=== PATIENT | female | born 1940 | race Caucasian/White ===

== ENCOUNTER 2019-03-03 16:05 | Observation (INO) | payer MEDICARE, OTHER ==
[2019-03-03] MEDS ORDERED: ASPIRIN 81 MG TABLET, CHEWABLE PO ONE (16:45)
--- NOTE | 2019-03-03 17:07 | ER Document Report ---
ED Medical Screen (RME) - General Chief Complaint: Chest Pain Stated Complaint: CHEST PAIN Time Seen by Provider: 03/03/19 16:36 Primary Care Provider: LAILA HIDALGO MD [Primary Care Provider] - Follow up as needed Mode of Arrival: Ambulatory Information source: Patient Notes: Patient is a 79-year-old female presenting to the emergency department with midsternal chest pain. Patient reports pain started approximately 2 hours prior to arrival. She denies any nausea, shortness of breath or diaphoresis. She denies any radiation of this pain. She reports the pain is a 4/5 on the pain scale. She denies any history of MIs in the past. Exam: Lung sounds clear and equal bilaterally, no acute distress noted. Heart sounds S1-S2 present with no ectopy noted, normal rate, normal rhythm. No tenderness with palpation of the chest wall. I have greeted and performed a rapid initial assessment of this patient. A comprehensive ED assessment and evaluation of the patient, analysis of test results and completion of the medical decision making process will be conducted by additional ED providers. I have specifically instructed the patient or family members with the patient to immediately return to any nursing staff should anything change in the patient's condition or with their chief complaint. This medical record was dictated with voice recognizing software. There may be grammatical, syntax errors that are unintended.\ TRAVEL OUTSIDE OF THE [place] IN LAST 30 DAYS: No - Related Data Allergies/Adverse Reactions: No Known Allergies Allergy (Verified 03/03/19 17:01) Past Medical History - Past Medical History Cardiac Medical History: Reports: Hx Hypercholesterolemia, Hx Hypertension Physical Exam - Vital signs Vitals: Temp Pulse Resp BP Pulse Ox 98.4 F 63 20 157/72 H 98 03/03/19 16:19 03/03/19 16:19 03/03/19 16:19 03/03/19 16:19 03/03/19 16:19 Course - Vital Signs Vital signs: Temp Pulse Resp BP Pulse Ox 98.4 F 63 20 157/72 H 98 03/03/19 16:19 03/03/19 16:19 03/03/19 16:19 03/03/19 16:19 03/03/19 16:19 Doctor's Discharge - Discharge Referrals: LAILA HIDAGLO MD [Primary Care Provider] - Follow up as needed
[2019-03-03 17:41] LABS: ALBUMIN 4.1 g/dL (3.5-5.0); ALKALINE PHOSPHATASE 50 U/L (38-126); ANION GAP 7 (5-19); ASPARTATE AMINO TRANSFERASE 27 U/L (14-36); BILIRUBIN,TOTAL 0.3 mg/dL (0.2-1.3); BLOOD UREA NITROGEN 13 mg/dL (7-20); CALCIUM 10.1 mg/dL (8.4-10.2); CARBON DIOXIDE 29 mmol/L (22-30); CHLORIDE 96 mmol/L (98-107); GLUCOSE 102 mg/dL (75-110); POTASSIUM 4.2 mmol/L (3.6-5.0); TOTAL PROTEIN 6.7 g/dL (6.3-8.2)
--- NOTE | 2019-03-03 17:44 | RADIOLOGY REPORT (SQ) ---
EXAM DESCRIPTION: CHEST 2 VIEWS COMPLETED DATE/TIME: 03/03/2019 5:17 pm REASON FOR STUDY: chest pain COMPARISON: None. TECHNIQUE: Single frontal radiographic view of the chest acquired. NUMBER OF VIEWS: One view. LIMITATIONS: None. FINDINGS: LUNGS AND PLEURA: No pneumothorax. No consolidation or pleural effusion. MEDIASTINUM AND HILAR STRUCTURES: Age-appropriate contour. HEART AND VASCULAR STRUCTURES: Normal size. BONES: Moderate Compression deformity of a lower thoracic spine vertebral body, age undetermined. HARDWARE: None in the chest. OTHER: No other significant finding. IMPRESSION: Moderate Compression deformity of a lower thoracic spine vertebral body, age undetermine d. No acute cardiopulmonary finding. TECHNICAL DOCUMENTATION: JOB ID: [id number] [employer]- All Rights Reserved Reading location - IP/workstation name: [email or web address]
[2019-03-03] MEDS ORDERED: NORMAL SALINE 1000 ML 1,000 ML IV ONE (17:55)
--- NOTE | 2019-03-03 17:55 | ER Document Report ---
ED Cardiac - General Chief Complaint: Chest Pain Stated Complaint: CHEST PAIN Time Seen by Provider: 03/03/19 16:36 Primary Care Provider: LAILA HIDALGO MD [Primary Care Provider] - Follow up as needed Mode of Arrival: Ambulatory Notes: Patient states that about 2:30 this afternoon, while just sitting, she began to experience "pressure" in the lower mid substernal region of her chest. The symptoms are still going on now. She has never had them before. Did not have any associated symptoms such as shortness of breath, etc. Has not been sick recently. No nausea or vomiting. No fevers. Patient had a stroke 20 years ago. She has poor memory function. History of hypertension and high cholesterol. Takes a baby aspirin daily. TRAVEL OUTSIDE OF THE [place] IN LAST 30 DAYS: No - Related Data Allergies/Adverse Reactions: No Known Allergies Allergy (Verified 03/03/19 17:01) Past Medical History - General Information source: Patient - Social History Smoking Status: Never Smoker Family History: Reviewed & Not Pertinent Patient has suicidal ideation: No Patient has homicidal ideation: No - Past Medical History Cardiac Medical History: Reports: Hx Hypercholesterolemia, Hx Hypertension Neurological Medical History: Reports: Hx Cerebrovascular Accident - 2 years ago ., Other - Memory loss. Endocrine Medical History: Denies: Hx Diabetes Mellitus Type 1, Hx Diabetes Mellitus Type 2 Surgical Hx: Negative Review of Systems - Review of Systems Notes: REVIEW OF SYSTEMS: CONSTITUTIONAL : Denies fever. EENT: Denies eye, ear, nose or mouth or throat pain or other symptoms. CARDIOVASCULAR: See HPI. RESPIRATORY: Denies cough, chest congestion, or shortness of breath. GASTROINTESTINAL: Denies abdominal pain or nausea, vomiting, or diarrhea. GENITOURINARY: Denies difficulty or painful urinating, urinary frequency, blood in urine. MUSCULOSKELETAL: Denies back or neck pain. Denies joint pain or swelling. SKIN: Denies rash or skin lesions. NEUROLOGICAL: Denies LOC or altered mental status. Denies headache. Denies sensory loss or motor deficits. ALL OTHER SYSTEMS REVIEWED AND NEGATIVE. Physical Exam - Vital signs Vitals: Temp Pulse Resp BP Pulse Ox 98.4 F 63 20 157/72 H 98 03/03/19 16:19 03/03/19 16:19 03/03/19 16:19 03/03/19 16:19 03/03/19 16:19 Interpretation: Hypertensive - Mild. No: Hypoxic Notes: PHYSICAL EXAMINATION: GENERAL: Well-appearing, in no acute distress. Mildly hypertensive. HEAD: Atraumatic, normocephalic. EYES: Pupils equal round and reactive to light, extraocular movements intact. ENT: oropharynx clear without exudates. Moist mucous membranes. NECK: Normal range of motion, supple. LUNGS: Breath sounds clear and equal bilaterally. HEART: Regular rate and rhythm without murmurs. ABDOMEN: Soft, nontender. No guarding or rebound. No masses. BACK: No tenderness throughout entire back. EXTREMITIES: Normal range of motion without pain. NEUROLOGICAL: Normal speech, normal gait. Normal sensory, motor, and reflex exams. Awake, alert, and oriented x3. Cranial nerves normal. Says she has significant memory loss. PSYCH: Normal mood, normal affect. SKIN: Warm, dry, no rashes. Course - Re-evaluation Re-evalutation: 03/03/19 18:[address] Hidalgo, patient's primary care provider, and he requested that I talk with the geography faculty member, Dr. Mayes. I called Dr. Mayes and he recommended that the patient be put in and ruled out. Patient will be admitted to [facility] to Dr. Hidalgo. 03/03/19 18:46 never came to the emergency department and saw the patient before she was admitted. - Vital Signs Vital signs: Temp Pulse Resp BP Pulse Ox 98.4 F 63 17 172/82 H 100 03/03/19 16:19 03/03/19 16:19 03/03/19 18:01 03/03/19 18:01 03/03/19 18:01 - Laboratory Result Diagrams: 03/03/19 16:50 03/03/19 16:50 Laboratory results interpreted by me: 03/03/19 03/03/19 16:50 16:50 Eos % (Auto) 7.8 H Absolute Eos (auto) 0.7 H Sodium 132.3 L Chloride 96 L Est GFR (MDRD) Non-Af 58 L - Diagnostic Test Radiology results interpreted by me: 03/03/19 18:00 Chest x-ray shows mild cardiomegaly, but otherwise normal. - EKG Interpretation by [facility] EKG shows normal: Sinus rhythm Rate: Normal Rhythm: NSR [place]/QRS: LBBB Voltage: Consistant with [facility] Discharge - Discharge Clinical Impression: Chest pain Condition: Stable Disposition: ADMITTED OBSERVATION Admitting Provider: Ruddy Unit Admitted: [facility] Referrals: LAILA HIDALGO MD [Primary Care Provider] - Follow up as needed
[2019-03-03] MEDS ORDERED: NITROGLYCERIN 2.5 MG (0.1 MG/HR) PATCH.TD24 TD ONE (17:56)
[2019-03-03 17:57] LABS: ABSOLUTE BASOPHILS # (AUTO) 0.1 10^3/uL (0.0-0.2); ABSOLUTE EOSINOPHILS # (AUTO) 0.7 10^3/uL (0.0-0.6); ABSOLUTE LYMPHOCYTES (AUTO) 2.5 10^3/uL (0.5-4.7); ABSOLUTE MONOCYTES (AUTO) 0.5 10^3/uL (0.1-1.4); ABSOLUTE NEUT (AUTO) 4.8 10^3/uL (1.7-8.2); BASOPHILS % (AUTO) 0.8 % (0-2); EOSINOPHILS % (AUTO) 7.8 % (0-6); HEMATOCRIT 37.6 % (36.0-47.0); HEMOGLOBIN 12.9 g/dL (12.0-15.5); LYMPHOCYTES % (AUTO) 29.5 % (13-45); MEAN CORPUSCULAR HEMOGLOBIN 30.8 pg (27.0-33.4); MEAN CORPUSCULAR HGB CONC 34.3 g/dL (32.0-36.0); MEAN CORPUSCULAR VOLUME 90 fl (80-97); MONOCYTES % (AUTO) 5.5 % (3-13); PLATELET COUNT 231 10^3/uL (150-450); RED BLOOD COUNT 4.18 10^6/uL (3.72-5.28); RED CELL DISTRIBUTION WIDTH 13.1 % (11.5-14.0); SEGMENTED NEUTROPHILS % (AUTO) 56.4 % (42-78); TOTAL CELLS COUNTED % (AUTO) 100 %; WHITE BLOOD COUNT 8.4 10^3/uL (4.0-10.5)
[2019-03-03] MEDS ORDERED: ACETAMINOPHEN 325 MG TABLET PO ONE ×2 (17:58→23:24)
--- NOTE | 2019-03-03 18:09 | EKG REPORT ---
SEVERITY:- ABNORMAL ECG - SINUS RHYTHM LEFT BUNDLE BRANCH BLOCK : Confirmed by: Tonio Pollard MD 03-Mar-2019 18:08:55
[2019-03-03] MEDS ORDERED: ACETAMINOPHEN 650 MG SUPP.RECT PR PRN (18:56)
[2019-03-03 19:55] LABS: TROPONIN I < 0.012 ng/mL
--- NOTE | 2019-03-03 20:06 | Progress Note ---
Provider Note Provider Note: pt seen and exam in er and d/w and d/w dr james
[2019-03-03] MEDS: FAMOTIDINE 20 MG TABLET PO SCH (21:40)
[2019-03-04 01:22] LABS: CREATINE KINASE MB 0.79 ng/mL (<4.55)
[2019-03-04 01:28] LABS: TROPONIN I < 0.012 ng/mL
[2019-03-04] MEDS ORDERED: ACETAMINOPHEN 325 MG TABLET ONE (02:04)
--- NOTE | 2019-03-04 07:34 | EKG REPORT ---
SEVERITY:- ABNORMAL ECG - SINUS RHYTHM LEFT BUNDLE BRANCH BLOCK : Confirmed by: Tonio Pollard MD 04-Mar-2019 07:34:04
--- NOTE | 2019-03-04 08:24 | RADIOLOGY REPORT (SQ) ---
EXAM DESCRIPTION: CERV SP 3 VIEW OR LESS COMPLETED DATE/TIME: 03/03/2019 7:27 pm REASON FOR STUDY: back pain COMPARISON: None. NUMBER OF VIEWS: Three views. TECHNIQUE: AP, lateral and odontoid radiographic images acquired of the cervical spine. LIMITATIONS: None. FINDINGS: MINERALIZATION: Normal. ALIGNMENT: Anatomic. VERTEBRAE: Vertebral bodies of normal height. DISCS: No significant disc space narrowing. No large osteophytes. HARDWARE: None in the spine. SOFT TISSUES: No masses or calcifications. Lung apices clear. OTHER: No other significant finding. IMPRESSION: NO SIGNIFICANT RADIOGRAPHIC FINDING IN THE CERVICAL SPINE. TECHNICAL DOCUMENTATION: JOB ID: [id number] [employer]- All Rights Reserved Reading location - IP/workstation name: [email or web address]
--- NOTE | 2019-03-04 08:27 | RADIOLOGY REPORT (SQ) ---
EXAM DESCRIPTION: T SPINE AP/LAT COMPLETED DATE/TIME: 03/03/2019 7:27 pm REASON FOR STUDY: lilain pain COMPARISON: None. NUMBER OF VIEWS: Two views. TECHNIQUE: AP and lateral radiographic images acquired of the thoracic spine. LIMITATIONS: None. FINDINGS: MINERALIZATION: Osteopenia. ALIGNMENT: Normal. No scoliosis. VERTEBRAE: There is approximately 40% loss of height at T12. Recommend MRI for further evaluation. The patient may be a candidate for kyphoplasty. DISCS: No significant loss of height or significant narrowing. No large osteophytes. HARDWARE: None in the spine. MEDIASTINUM AND SOFT TISSUES: Normal heart size and aortic contour. No soft tissue abnormality. VISUALIZED LUNG WHITNEY: Clear. OTHER: No other significant finding. IMPRESSION: T12 compression deformity with approximately 40% loss of height. Recommend MRI for furt her evaluation. The patient may be a candidate for kyphoplasty. TECHNICAL DOCUMENTATION: JOB ID: [id number] [employer]- All Rights Reserved Reading location - IP/workstation name: [email or web address]
[2019-03-04 08:35] LABS: BLOOD UREA NITROGEN 11 mg/dL (7-20); CALCIUM 9.5 mg/dL (8.4-10.2); GLUCOSE 90 mg/dL (75-110); POTASSIUM 4.4 mmol/L (3.6-5.0)
[2019-03-04 08:41] LABS: ANION GAP 5 (5-19); CARBON DIOXIDE 27 mmol/L (22-30); CHLORIDE 104 mmol/L (98-107)
[2019-03-04 08:46] LABS: CREATINE KINASE MB 0.63 ng/mL (<4.55)
[2019-03-04 08:53] LABS: TROPONIN I < 0.012 ng/mL
--- NOTE | 2019-03-04 09:35 | PDOC H&P ---
History of Present Illness Admission Date/PCP: 03/03/19 19:16 LAILA HIDALGO MD Patient complains of: Chest pain History of Present Illness: ISABELA HDEZ is a 79 year old female This is a 79-year-old female fairly new patient to the practice with a history of the major depression's and a history of osteoporosis and recently struggling from the memory problem came to the emergency department with the complaining of her chest pain especially describing her midsternal in the left side started 4 hours back before come to the ER without any activity In the ER patient initial EKG cardiac enzyme is all negative patient's d-dimer is also negative Patient's never had any previous heart disease At this point patient was giving the nitro which mild help but still have a chest pain which more likely a chest wall type of the pain and initial work-up when I saw the patient noticed that patient has some kind of a compression fracture and decided to order the x-ray of the C-spine and T-spine to further evaluate may be they can radiate this pain With the age and other medical issues decided to cardiology consult for further evaluate Discussed with the hospital on the bedside regarding the patient's current conditions Discussed with the cardiology Dr. Mayes Past Medical History Cardiac Medical History: Reports: Hyperlipidema, Hypertension Neurological Medical History: Reports: Other - Memory loss. Endocrine Medical History: Denies: Diabetes Mellitus Type 1, Diabetes Mellitus Type 2 Musculoskeltal Medical History: Reports: Arthritis Psychiatric Medical History: Reports: Depression Social History Information Source: Patient Smoking Status: Never Smoker Frequency of Alcohol Use: None Hx Recreational Drug Use: No Drugs: None Hx Prescription Drug Abuse: No Family History Family History: Reviewed & Not Pertinent Parental Family History Reviewed: Yes Children Family History Reviewed: Yes Sibling(s) Family History Reviewed.: Yes Medication/Allergy Home Medications: Alendronate Sodium 70 mg PO Q7D 03/03/19 Atorvastatin Calcium [Lipitor 10 mg Tablet] 10 mg PO QHS 03/03/19 Citalopram Hydrobromide [Celexa 20 mg Tablet] 30 mg PO DAILY 03/03/19 Levocetirizine Dihydrochloride [Allergy Relief] 5 mg PO DAILY 03/03/19 Losartan Potassium [Cozaar 50 mg Tablet] 50 mg PO DAILY 03/03/19 Allergies/Adverse Reactions: No Known Allergies Allergy (Verified 03/03/19 17:01) Review of Systems Constitutional: ABSENT: chills, fever(s), headache(s), weight gain, weight loss Eyes: ABSENT: visual disturbances Ears: ABSENT: hearing changes Cardiovascular: PRESENT: chest pain. ABSENT: dyspnea on exertion, edema, orthropnea, palpitations Respiratory: ABSENT: cough, hemoptysis Gastrointestinal: ABSENT: abdominal pain, constipation, diarrhea, hematemesis, hematochezia, nausea, vomiting Genitourinary: ABSENT: dysuria, hematuria Musculoskeletal: ABSENT: joint swelling Integumentary: ABSENT: rash, wounds Neurological: ABSENT: abnormal gait, abnormal speech, confusion, dizziness, focal weakness, syncope Psychiatric: ABSENT: anxiety, depression, homidical ideation, suicidal ideation Endocrine: ABSENT: cold intolerance, heat intolerance, menstrual abnormalities, polydipsia, polyuria Hematologic/Lymphatic: ABSENT: easy bleeding, easy bruising, lymphadenopathy Physical Exam Vital Signs: Temp Pulse Resp BP Pulse Ox 97.7 F 58 L 18 157/70 H 98 03/04/19 08:17 03/04/19 08:17 03/04/19 08:17 03/04/19 08:17 03/04/19 08:17 Intake & Output 03/03/19 03/04/19 03/05/19 06:59 06:59 06:59 Intake Total 1100 Balance 1100 Weight 59.7 kg General appearance: PRESENT: no acute distress, well-developed, well-nourished Head exam: PRESENT: atraumatic, normocephalic Eye exam: PRESENT: conjunctiva pink, EOMI, PERRLA. ABSENT: scleral icterus Ear exam: PRESENT: normal external ear exam Mouth exam: PRESENT: moist, tongue midline Neck exam: PRESENT: full ROM. ABSENT: carotid bruit, JVD, lymphadenopathy, thyromegaly Respiratory exam: PRESENT: chest wall tenderness, clear to auscultation rishi Cardiovascular exam: PRESENT: RRR. ABSENT: diastolic murmur, rubs, systolic murmur Pulses: PRESENT: normal dorsalis pedis pul, +2 pedal pulses bilateral Vascular exam: PRESENT: normal capillary refill GI/Abdominal exam: PRESENT: normal bowel sounds, soft. ABSENT: distended, guarding, mass, organolmegaly, rebound, tenderness Rectal exam: PRESENT: deferred Musculoskeletal exam: PRESENT: ambulatory Neurological exam: PRESENT: alert, awake, oriented to person, oriented to place, oriented to time, oriented to situation, CN II-XII grossly intact. ABSENT: motor sensory deficit Psychiatric exam: PRESENT: appropriate affect, normal mood. ABSENT: homicidal ideation, suicidal ideation Skin exam: PRESENT: dry, intact, warm. ABSENT: cyanosis, rash Results Laboratory Results: 03/03/19 16:50 03/04/19 07:53 03/03/19 03/03/19 03/04/19 16:50 16:50 07:53 WBC 8.4 RBC 4.18 Hgb 12.9 Hct 37.6 MCV 90 MCH 30.8 MCHC 34.3 RDW 13.1 Plt Count 231 Seg Neutrophils % 56.4 Sodium 132.3 L 136.0 L Potassium 4.2 4.4 Chloride 96 L 104 Carbon Dioxide 29 27 Anion Gap 7 5 BUN 13 11 Creatinine 0.94 0.85 Est GFR ( Amer) > 60 > 60 Glucose 102 90 Calcium 10.1 9.5 Total Bilirubin 0.3 AST 27 Alkaline Phosphatase 50 Total Protein 6.7 Albumin 4.1 03/03/19 03/03/19 03/03/19 16:50 18:54 18:54 Creatine Kinase 50 CK-MB (CK-2) 0.70 Troponin I < 0.012 < 0.012 03/04/19 03/04/19 03/04/19 00:46 00:46 07:53 Creatine Kinase 45 38 CK-MB (CK-2) 0.79 Troponin I < 0.012 03/04/19 07:53 Creatine Kinase CK-MB (CK-2) 0.63 Troponin I < 0.012 Impressions: Cervical Spine X-Ray 03/03/19 00:00 IMPRESSION: NO SIGNIFICANT RADIOGRAPHIC FINDING IN THE CERVICAL SPINE. Thoracic Spine X-Ray 03/03/19 00:00 IMPRESSION: T12 compression deformity with approximately 40% loss of height. Recommend MRI for further evaluation. The patient may be a candidate for kyphoplasty. Chest X-Ray 03/03/19 17:02 IMPRESSION: Moderate Compression deformity of a lower thoracic spine vertebral body, age undetermined. No acute cardiopulmonary finding. Assessment & Plan - Diagnosis (1) Chest pain Qualifiers: Chest pain type: unspecified Qualified Code(s): R07.9 - Chest pain, unspecified Is this a current diagnosis for this admission?: Yes Plan: We will rule out the acute coronary syndromes Consult the cardiology Possible chest wall pain but patients describing more deep (2) T12 compression fracture Qualifiers: Encounter type: initial encounter Qualified Code(s): S22.080A - Wedge compression fracture of T11-T12 vertebra, initial encounter for closed fracture Is this a current diagnosis for this admission?: Yes Plan: We will get the MRI of the T-spine consult the pain management evaluate for any kyphoplasty (3) Osteoporosis Qualifiers: Presence of current pathological fracture: unspecified Is this a current diagnosis for this admission?: Yes (4) Major depression Qualifiers: Major depression recurrence: recurrent Psychotic features: without psychotic features Is this a current diagnosis for this admission?: Yes Plan: Currently all stable (5) Memory problem Is this a current diagnosis for this admission?: Yes Plan: Patient initial blood work is all stable in the office actually patient scheduled for MRI of the head today as outpatient - Time Time Spent: 50 to 70 Minutes Medications reviewed and adjusted accordingly: Yes Anticipated discharge: Home Within: Other - Inpatient Certification Based on my medical assessment, after consideration of the patient's comorbidities, presenting symptoms, or acuity I expect that the services needed warrant INPATIENT care.: Yes I certify that my determination is in accordance with my understanding of Medicare's requirements for reasonable and necessary INPATIENT services [42 CFR 412.3e].: Yes Medical Necessity: Significant Comorbidiites Make Outpatient Treatment Too Risky, Need Close Monitoring Due to Risk of Patient Decompensation 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
--- NOTE | 2019-03-04 09:37 | PDOC PROGRESS REPORT ---
Subjective Progress Note for:: 03/04/19 Subjective:: Patient is feeling much better still having some pain especially described in the sternal area No short of breath Recent x-ray of the T-spine suggest the T12 compression fracture with the 40% loss of height Reason For Visit: CHEST PAIN Physical Exam Vital Signs: Temp Pulse Resp BP Pulse Ox 97.7 F 58 L 18 157/70 H 98 03/04/19 08:17 03/04/19 08:17 03/04/19 08:17 03/04/19 08:17 03/04/19 08:17 Intake & Output 03/03/19 03/04/19 03/05/19 06:59 06:59 06:59 Intake Total 1100 Balance 1100 Weight 59.7 kg General appearance: PRESENT: no acute distress, well-developed, well-nourished Head exam: PRESENT: atraumatic, normocephalic Eye exam: PRESENT: conjunctiva pink, EOMI, PERRLA. ABSENT: scleral icterus Ear exam: PRESENT: normal external ear exam Mouth exam: PRESENT: moist, tongue midline Neck exam: PRESENT: full ROM. ABSENT: carotid bruit, JVD, lymphadenopathy, thyromegaly Respiratory exam: PRESENT: clear to auscultation rishi Cardiovascular exam: PRESENT: RRR. ABSENT: diastolic murmur, rubs, systolic murmur Pulses: PRESENT: normal dorsalis pedis pul, +2 pedal pulses bilateral Vascular exam: PRESENT: normal capillary refill GI/Abdominal exam: PRESENT: normal bowel sounds, soft. ABSENT: distended, guarding, mass, organolmegaly, rebound, tenderness Rectal exam: PRESENT: deferred Musculoskeletal exam: PRESENT: ambulatory Neurological exam: PRESENT: alert, awake, oriented to person, oriented to place, oriented to time, oriented to situation, CN II-XII grossly intact. ABSENT: motor sensory deficit Psychiatric exam: PRESENT: appropriate affect, normal mood. ABSENT: homicidal ideation, suicidal ideation Skin exam: PRESENT: dry, intact, warm. ABSENT: cyanosis, rash Results Laboratory Results: 03/03/19 16:50 03/04/19 07:53 03/03/19 03/03/19 03/04/19 16:50 16:50 07:53 WBC 8.4 RBC 4.18 Hgb 12.9 Hct 37.6 MCV 90 MCH 30.8 MCHC 34.3 RDW 13.1 Plt Count 231 Seg Neutrophils % 56.4 Sodium 132.3 L 136.0 L Potassium 4.2 4.4 Chloride 96 L 104 Carbon Dioxide 29 27 Anion Gap 7 5 BUN 13 11 Creatinine 0.94 0.85 Est GFR ( Amer) > 60 > 60 Glucose 102 90 Calcium 10.1 9.5 Total Bilirubin 0.3 AST 27 Alkaline Phosphatase 50 Total Protein 6.7 Albumin 4.1 03/03/19 03/03/19 03/03/19 16:50 18:54 18:54 Creatine Kinase 50 CK-MB (CK-2) 0.70 Troponin I < 0.012 < 0.012 03/04/19 03/04/19 03/04/19 00:46 00:46 07:53 Creatine Kinase 45 38 CK-MB (CK-2) 0.79 Troponin I < 0.012 03/04/19 07:53 Creatine Kinase CK-MB (CK-2) 0.63 Troponin I < 0.012 Impressions: Cervical Spine X-Ray 03/03/19 00:00 IMPRESSION: NO SIGNIFICANT RADIOGRAPHIC FINDING IN THE CERVICAL SPINE. Thoracic Spine X-Ray 03/03/19 00:00 IMPRESSION: T12 compression deformity with approximately 40% loss of height. Recommend MRI for further evaluation. The patient may be a candidate for kyphoplasty. Chest X-Ray 03/03/19 17:02 IMPRESSION: Moderate Compression deformity of a lower thoracic spine vertebral body, age undetermined. No acute cardiopulmonary finding. Assessment & Plan - Diagnosis (1) Chest pain Qualifiers: Chest pain type: unspecified Qualified Code(s): R07.9 - Chest pain, unspec ified Is this a current diagnosis for this admission?: Yes Plan: ALT cardiac enzyme EKG is normal we will do the CT of the chest and also follow with the cardiology (2) T12 compression fracture Qualifiers: Encounter type: initial encounter Qualified Code(s): S22.080A - Wedge compression fracture of T11-T12 vertebra, initial encounter for closed fracture Is this a current diagnosis for this admission?: Yes Plan: We will get the MRI of the T-spineConsult the pain management (3) Osteoporosis Qualifiers: Presence of current pathological fracture: unspecified Is this a current diagnosis for this admission?: Yes (4) Major depression Qualifiers: Major depression recurrence: recurrent Psychotic features: without psychotic features Is this a current diagnosis for this admission?: Yes (5) Memory problem Is this a current diagnosis for this admission?: Yes (6) Hypertension Qualifiers: Hypertension type: essential hypertension Qualified Code(s): I10 - Essential (primary) hypertension Is this a current diagnosis for this admission?: Yes Plan: Continues to losartan (7) Hyperlipidemia Qualifiers: Hyperlipidemia type: unspecified Qualified Code(s): E78.5 - Hyperlipidemia, unspecified Is this a current diagnosis for this admission?: Yes - Time Time Spent with patient: 15-24 minutes Medications reviewed and adjusted accordingly: Yes Anticipated discharge: Home Within: Other - Plan Summary Plan Summary: See orders
--- NOTE | 2019-03-04 09:50 | RADIOLOGY REPORT (SQ) ---
EXAM DESCRIPTION: CT CHEST WITHOUT COMPLETED DATE/TIME: 03/04/2019 9:30 am REASON FOR STUDY: chest pain COMPARISON: Chest x-ray dated 03/03/2019 TECHNIQUE: CT scan performed of the chest without intravenous contrast. Images reviewed with lung, soft tissue and bone windows. Reconstructed coronal and sagittal MPR images reviewed. All images st ored on PACS. All CT scanners at this facility use dose modulation, iterative reconstruction, and/or weight based d osing when appropriate to reduce radiation dose to as low as reasonably achievable (ALARA). [facility]: Dose Right [facility]: CareDose [facility]: Dose Right [facility]: Teradose 4D [facility]: BlackArrow RADIATION DOSE: CT Rad equipment meets quality standard of care and radiation dose reduction techniq ues were employed. CTDIvol: 3.4 mGy. DLP: 152 mGy-cm. mGy. LIMITATIONS: No technical limitations. FINDINGS: LUNGS AND PLEURA: No consolidation or effusions. There is scarring in the lung apices. T here is mild central bronchiectasis. No suspicious pulmonary nodules. HILAR AND MEDIASTINAL STRUCTURES: No identified masses or abnormal nodes. No obvious aneurysm. HEART AND VASCULAR STRUCTURES: No aneurysm. No pericardial effusion. UPPER ABDOMEN: No significant findings. Limited exam. THYROID AND OTHER SOFT TISSUES: No masses. No adenopathy. BONES: There are mild compression deformities at T9 and T12. Age is indeterminate. Recommend correl ation with MRI. The patient may be a candidate for kyphoplasty. HARDWARE: None in the chest. OTHER: No other significant findings. IMPRESSION: Mild central bronchiectasis. Scarring in the lung apices. No consolidation or effusion s. No suspicious pulmonary nodules. Mild compression deformities at T9 and T12. Age is indeterminate. Recommend correlation with MRI. The patient may be a candidate for kyphoplasty if clinically indicated. TECHNICAL DOCUMENTATION: JOB ID: [id number] Quality ID # [id number]: Final reports with documentation of one or more dose reduction techniques (e.g., Au tomated exposure control, adjustment of the mA and/or kV according to patient size, use of iterative reconstruction technique) 2010 [employer]- All Rights Reserved Reading location - IP/workstation name: [email or web address]
[2019-03-04] MEDS: FAMOTIDINE 20 MG TABLET PO SCH ×2 (10:35→21:41)
[2019-03-04] MEDS: ENOXAPARIN SODIUM INJ 40 MG/0.4 ML DISP.SYRIN SUBCUT SCH (10:35)
--- NOTE | 2019-03-04 11:00 | RADIOLOGY REPORT (SQ) ---
EXAM DESCRIPTION: MRI THORACIC SPINE WITHOUT COMPLETED DATE/TIME: 03/04/2019 10:03 am REASON FOR STUDY: t 12 compression fx COMPARISON: None. TECHNIQUE: Sagittal and Axial imaging includes T1, T2, STIR and gradient echo sequences. LIMITATIONS: None. FINDINGS: LOCALIZER: No worrisome findings. ALIGNMENT: Normal. VERTEBRAE: Chronic mild compression deformities at T9 and T12. No acute findings. BONE MARROW: Normal. No marrow replacement or reactive changes. HARDWARE: None in the spine. CORD: Normal in size and signal intensity. SOFT TISSUES: No soft tissue masses. THORACIC DISCS T1-T12: No significant spinal stenosis or exit foraminal stenosis. LOWER CERVICAL: Incompletely imaged. No significant spinal stenosis or exit foraminal stenosis. UPPER LUMBAR: Incompletely imaged. No significant spinal stenosis or exit foraminal stenosis. OTHER: No other significant finding. IMPRESSION: Chronic compression deformities at T9 and T12. No acute findings. TECHNICAL DOCUMENTATION: JOB ID: [id number] [email or web address]- All Rights Reserved Reading location - IP/workstation name: [email or web address]
[2019-03-04] MEDS ORDERED: SUCRALFATE 1 GM TABLET PO ONE (11:45)
[2019-03-04] MEDS: SUCRALFATE 1 GM TABLET PO SCH ×2 (17:07→21:41)
--- NOTE | 2019-03-04 21:22 | PDOC CONSULTATION ---
Consultation-Blank Consultation: CARDIOLOGY CONSULTATION by Dr. Socorro Mayes on 03/04/2019. Patient seen at 9:30 AM. 60 minutes spent on this patient with more than 50% of time spent direct patient care. REASON FOR CONSULTATION: Patient with prolonged chest pressure. CONSULT REQUESTING PHYSICIAN: Dr. Fox HISTORY PRESENT ILLNESS: Note the patient did recent memory loss, and hence very difficult to obtain history from the patient. The patient is a 79-year-old female with known history of hypertension and hyperlipidemia, and memory loss who states that she has been having chest pressure which is constant. She denies chest wall tenderness or any reproducibility of the patient's chest pressure. She states that the chest pressure slightly better when she sits up but worse when she lies down. She has no history of hiatal hernia. Of note the patient's troponin I has been negative so far. The patient has a history of chronic left bundle branch block pattern on her EKG. The patient was given 1 g of sucralfate and her chest pressure resolved. Hence clearly this is noncardiac and secondary to a GI problem. She has no dysphagia. Of note the patient also has a compression fracture of undetermined age of 89 and T12 vertebra. Pain management has been asked to see the patient for this. This is to see whether the fractures could be causing the patient's symptoms of pressure.. There is no palpitations. There is no shortness of breath. There is no PND orthopnea or leg edema. There is no syncope. Past Medical History Cardiac Medical History: Reports: Hyperlipidema, Hypertension Neurological Medical History: Reports: Other - Memory loss. Endocrine Medical History: Denies: Diabetes Mellitus Type 1, Diabetes Mellitus Type 2 Musculoskeltal Medical History: Reports: Arthritis Psychiatric Medical History: Reports: Depression RESUSCITATION STATUS: The patient is a full code. Her is her surrogate healthcare decision maker. Social History Information Source: Patient Smoking Status: Never Smoker Frequency of Alcohol Use: None Hx Recreational Drug Use: No Drugs: None Hx Prescription Drug Abuse: No Family History Family History: Reviewed & Not Pertinent Parental Family History Reviewed: Yes Children Family History Reviewed: Yes Sibling(s) Family History Reviewed.: Yes Medication/Allergy Home Medications: Alendronate Sodium 70 mg PO Q7D 03/03/19 Atorvastatin Calcium [Lipitor 10 mg Tablet] 10 mg PO QHS 03/03/19 Citalopram Hydrobromide [Celexa 20 mg Tablet] 30 mg PO DAILY 03/03/19 Levocetirizine Dihydrochloride [Allergy Relief] 5 mg PO DAILY 03/03/19 Losartan Potassium [Cozaar 50 mg Tablet] 50 mg PO DAILY 03/03/19 Allergies/Adverse Reactions: No Known Allergies Allergy (Verified 03/03/19 17:01) Review of Systems Constitutional: ABSENT: chills, fever(s), headache(s), weight gain, weight loss Eyes: ABSENT: visual disturbances Ears: ABSENT: hearing changes Cardiovascular: PRESENT: chest pain. ABSENT: dyspnea on exertion, edema, orthropnea, palpitations Respiratory: ABSENT: cough, hemoptysis Gastrointestinal: ABSENT: abdominal pain, constipation, diarrhea, hematemesis, hematochezia, nausea, vomiting Genitourinary: ABSENT: dysuria, hematuria Musculoskeletal: ABSENT: joint swelling Integumentary: ABSENT: rash, wounds Neurological: ABSENT: abnormal gait, abnormal speech, confusion, dizziness, focal weakness, syncope Psychiatric: ABSENT: anxiety, depression, homidical ideation, suicidal ideation Endocrine: ABSENT: cold intolerance, heat intolerance, menstrual abnormalities, polydipsia, polyuria Hematologic/Lymphatic: ABSENT: easy bleeding, easy bruising, lymphadenopathy PHYSICAL EXAMINATION: The patient is a frail build and appears to be chronically ill. She does complain of pressure in the chest earlier prior to her receiving sucralfate, but does not appear to be in any major distress. Selected Entries 03/04/19 03/04/19 08:17 08:59 Temperature 97.7 F Temperature Oral Source Pulse Rate 58 L Respiratory 18 Rate Blood Pressure 157/70 H Blood Pressure 99 Mean BP Location Right Arm BP Position Supine O2 Sat by Pulse 98 Oximetry Fraction of 21 Inspired Oxygen (FIO2) Oxygen Delivery Room Air Method General appearance: PRESENT: no acute distress, well-developed, well-nourished Head exam: PRESENT: atraumatic, normocephalic Eye exam: PRESENT: conjunctiva pink, EOMI, PERRLA. ABSENT: scleral icterus Ear exam: PRESENT: normal external ear exam Mouth exam: PRESENT: moist, tongue midline Neck exam: PRESENT: full ROM. ABSENT: carotid bruit, JVD, lymphadenopathy, thyromegaly Respiratory exam: PRESENT: chest wall tenderness, clear to auscultation rishi Cardiovascular exam: PRESENT: S1-S2 is heard. There is no S3 gallop. There is no S4 gallop. There is systolic murmur left sternal border and the apex. There is no rub Pulses: PRESENT: normal dorsalis pedis pul, +2 pedal pulses bilateral Vascular exam: PRESENT: normal capillary refill GI/Abdominal exam: PRESENT: normal bowel sounds, soft. ABSENT: distended, guarding, mass, organolmegaly, rebound, tenderness Rectal exam: PRESENT: deferred Musculoskeletal exam: PRESENT: ambulatory Neurological exam: PRESENT: alert, awake, oriented to person, oriented to place, oriented to time, oriented to situation, CN II-XII grossly intact. ABSENT: motor sensory deficit Psychiatric exam: PRESENT: appropriate affect, normal mood. ABSENT: homicidal ideation, suicidal ideation Skin exam: PRESENT: dry, intact, warm. ABSENT: cyanosis, rash EKG: Sinus rhythm with left bundle branch block pattern. This seems to be chronic. Current Medications Generic Name Dose Route Start Last Admin Trade Name Freq PRN Reason Stop Dose Admin Acetaminophen 650 mg 03/03/19 18:56 Tylenol 650 Mg Supp MO 04/02/19 18:55 Q4HP PRN FOR PAIN OR TEMP Enoxaparin Sodium 40 mg 03/04/19 10:00 03/04/19 10:35 Lovenox Inj 40 Mg/0.4 Ml Disp.Syrin SUBCUT 04/03/19 09:59 40 mg DAILY LISANDRO Administration Famotidine 20 mg 03/03/19 22:00 03/04/19 10:35 Pepcid 20 Mg Tablet PO 04/02/19 21:59 20 mg Q12 LISANDRO Administration Sucralfate 1 gm 03/04/19 18:00 03/04/19 17:07 Carafate 1 Gm Tablet PO 04/03/19 17:59 1 gm QID LISANDRO Administration Discontinued Medications Generic Name Dose Route Start Last Admin Trade Name Freq PRN Reason Stop Dose Admin Acetaminophen 650 mg 03/03/19 17:58 03/03/19 18:31 Tylenol 325 Mg Tablet PO 03/03/19 17:59 650 mg NOW ONE Administration Acetaminophen 650 mg 03/03/19 23:24 03/04/19 02:06 Tylenol 325 Mg Tablet PO 03/03/19 23:25 650 mg NOW ONE Administration Acetaminophen Confirm 03/04/19 02:04 Tylenol 325 Mg Tablet Administered 03/04/19 02:05 Dose 325 mg .ROUTE .STK-MED ONE Aspirin 162 mg 03/03/19 16:45 03/03/19 17:00 Aspirin 81 Mg Chewable Tablet PO 03/03/19 16:46 162 mg NOW ONE Administration Sodium Chloride 1,000 mls @ 250 mls/hr 03/03/19 17:55 03/04/19 02:01 Nacl 0.9% 1000 Ml Iv Soln IV 03/03/19 21:54 Infused NOW ONE Infusion Nitroglycerin 1 each 03/03/19 17:56 03/03/19 18:31 Nitro-Dur 2.5 Mg (0.1 Mg/Hr) Transdermal Ptch TD 03/03/19 17:57 1 each NOW ONE Administration Sucralfate 1 gm 03/04/19 11:45 03/04/19 12:07 Carafate 1 Gm Tablet PO 03/04/19 11:46 1 gm NOW ONE Administration Abnormal - 24 hr 03/04/19 07:53 Sodium 136.0 L Cervical Spine X-Ray 03/03/19 00:00 IMPRESSION: NO SIGNIFICANT RADIOGRAPHIC FINDING IN THE CERVICAL SPINE. Thoracic Spine X-Ray 03/03/19 00:00 IMPRESSION: T12 compression deformity with approximately 40% loss of height. Recommend MRI for further evaluation. The patient may be a candidate for kyphoplasty. Chest X-Ray 03/03/19 17:02 IMPRESSION: Moderate Compression deformity of a lower thoracic spine vertebral body, age undetermined. No acute cardiopulmonary finding. Chest CT 03/04/19 00:00 IMPRESSION: Mild central bronchiectasis. Scarring in the lung apices. No consolidation or effusions. No suspicious pulmonary nodules. Mild compression deformities at T9 and T12. Age is indeterminate. Recommend correlation with MRI. The patient may be a candidate for kyphoplasty if clinically indicated. Thoracic Spine MRI 03/04/19 00:00 IMPRESSION: Chronic compression deformities at T9 and T12. No acute findings. IMPRESSION/RECOMMENDATION: 1. Prolonged chest pressure with negative serial troponin I measurements. Symptoms relieved with sucralfate. Hence most likely secondary to GERD/hiatal hernia. Hence clearly noncardiac. 2. Hypertension: Well controlled. Continue losartan 3. Hyperlipidemia. Continue statins. 4. Compression fracture of T9 and T12 vertebrae. 5. Chronic left bundle branch block pattern 6. SYSTOLIC MURMUR: Later would recommend getting an echocardiogram to assess this. 7. DEPRESSION: Continue current treatment. 8. Memory loss patient not early Alzheimer's. 9. Multiple CAD risk factors namely age, hypertension, and hyperlipidemia. Was the patient's compression fracture is stabilized would recommend that the patient have a IV Lexiscan Cardiolite stress test as an outpatient. Also would recommend the patient have an echocardiogram to assess the murmur. Clinically the patient does not have significant aortic stenosis. Patient has probably mild mitral regurgitation. But will get an echo as an outpatient to confirm this. Medications reviewed. Medication management and medical management discussed with Dr. Fox. Note sucralfate was added but the patient become asymptomatic. Medical decision making is of moderate complexity. 60 minutes spent on this patient with more than 50% of time spent direct patient care. Will sign off and follow the patient as an outpatient.
--- NOTE | 2019-03-04 21:44 | PDOC CONSULTATION ---
Consultation Consult Date: 03/04/19 Provider Consulted: CHECO FLORES Consult reason:: Compression Fracture History of Present Illness Admission Date/PCP: 03/03/19 19:16 LAILA HIDALGO MD Patient complains of: chest pain History of Present Illness: ISABELA HDEZ is a 79 year old female admitted for chest pain. Incidental findings on CXR showed compression fracture. Patient denies back pain. States she remains very active on a daily basis. Denies pain other than generalized aches and pains. She again reports being active daily keeping up with housework. Past Medical History Cardiac Medical History: Reports: Hyperlipidema, Hypertension Neurological Medical History: Reports: Other - Memory loss. DENIES back pain or prior injury Endocrine Medical History: Denies: Diabetes Mellitus Type 1, Diabetes Mellitus Type 2 Musculoskeltal Medical History: Reports: Arthritis Psychiatric Medical History: Reports: Depression Social History Smoking Status: Never Smoker Frequency of Alcohol Use: None Hx Recreational Drug Use: No Drugs: None Hx Prescription Drug Abuse: No Family History Family History: Reviewed & Not Pertinent Parental Family History Reviewed: No Children Family History Reviewed: No Sibling(s) Family History Reviewed.: No Medication/Allergy Home Medications: Alendronate Sodium 70 mg PO Q7D 03/03/19 Atorvastatin Calcium [Lipitor 10 mg Tablet] 10 mg PO QHS 03/03/19 Citalopram Hydrobromide [Celexa 20 mg Tablet] 30 mg PO DAILY 03/03/19 Levocetirizine Dihydrochloride [Allergy Relief] 5 mg PO DAILY 03/03/19 Losartan Potassium [Cozaar 50 mg Tablet] 50 mg PO DAILY 03/03/19 Allergies/Adverse Reactions: No Known Allergies Allergy (Verified 03/03/19 17:01) Review of Systems All systems: reviewed and no additional remarkable complaints except as stated - chest pain Physical Exam Vital Signs: 03/04/19 10:43 Temperature 97.7 F Temperature Oral Source Pulse Rate 71 Respiratory 18 Rate Blood Pressure 136/55 H O2 Sat by Pulse 97 Oximetry Oxygen Delivery Room Air Method General appearance: PRESENT: no acute distress, cooperative, well-developed, well-nourished Head exam: PRESENT: atraumatic, normocephalic Eye exam: PRESENT: EOMI. ABSENT: conjunctival injection, scleral icterus Neck exam: PRESENT: other - grossly full CROM Respiratory exam: PRESENT: clear to auscultation rishi, unlabored Vascular exam: ABSENT: pallor Musculoskeletal exam: PRESENT: ambulatory, normal inspection Neurological exam: PRESENT: alert, altered, awake, oriented to person, oriented to place, oriented to time, oriented to situation, CN II-XII grossly intact, normal gait Psychiatric exam: PRESENT: appropriate affect, normal mood Skin exam: PRESENT: normal color Results Laboratory Results: Impressions: Thoracic Spine X-Ray 03/03/19 00:00 IMPRESSION: T12 compression deformity with approximately 40% loss of height. Recommend MRI for further evaluation. The patient may be a candidate for kyphoplasty. Chest CT 03/04/19 00:00 IMPRESSION: Mild central bronchiectasis. Scarring in the lung apices. No consolidation or effusions. No suspicious pulmonary nodules. Mild compression deformities at T9 and T12. Age is indeterminate. Recommend correlation with MRI. The patient may be a candidate for kyphoplasty if clinically indicated. Thoracic Spine MRI 03/04/19 00:00 IMPRESSION: Chronic compression deformities at T9 and T12. No acute findings. Assessment & Plan - Diagnosis (1) T12 compression fracture Qualifiers: Encounter type: initial encounter Qualified Code(s): S22.080A - Wedge compression fracture of T11-T12 vertebra, initial encounter for closed fracture Is this a current diagnosis for this admission?: Yes (2) T9 vertebral fracture Qualifiers: Encounter type: initial encounter Fracture type: closed Fracture morphology: wedge compression Qualified Code(s): S22.070A - Wedge compression fracture of T9-T10 vertebra, initial encounter for closed fracture Is this a current diagnosis for this admission?: Yes - Plan Summary Plan Summary: Pleasant 79yo female admitted for chest pain with incidental findings of thoracic compression fractures on imaging. MRI Thoracic spine confirmed chronic T9 and T12 fractures. No acute or chronic pain noted by patient. No need for any interventions at this time. Continue osteoporosis tx/protocol. Continues ADLs and activity as tolerated. Gave patient our business card if services needed in future.
[2019-03-05 07:14] LABS: ANION GAP 8 (5-19); BLOOD UREA NITROGEN 14 mg/dL (7-20); CALCIUM 9.6 mg/dL (8.4-10.2); CARBON DIOXIDE 26 mmol/L (22-30); CHLORIDE 102 mmol/L (98-107); GLUCOSE 96 mg/dL (75-110); POTASSIUM 4.3 mmol/L (3.6-5.0)
--- NOTE | 2019-03-05 08:46 | PDOC PROGRESS REPORT ---
Subjective Progress Note for:: 03/05/19 Subjective:: Patient is complaining of a headache this morning's with the elevated blood pressures restart the blood pressure medications losartan discussed with the Dr. LAGUNA suggest to put on a mild drooping 2.5 mg twice a day Patient was given Carafate yesterday do not see much difference still having some pain on and off in the sternal area denied any heartburns Patient's had MRI done yesterday with the T12 compression fracture seen by the pain management no need for any intervention at this point Since seen by the manager ship suggest a noncardiac chest pain no need for any further evaluation while in the hospital CT of the chest was done without contrast which stable no other acute finding Reason For Visit: CHEST PAIN Physical Exam Vital Signs: Temp Pulse Resp BP Pulse Ox 97.6 F 66 16 175/77 H 96 03/05/19 04:08 03/05/19 04:08 03/05/19 04:08 03/05/19 06:46 03/05/19 04:08 Intake & Output 03/04/19 03/05/19 03/06/19 06:59 06:59 06:59 Intake Total 1100 820 Balance 1100 820 Weight 59.7 kg 58.9 kg General appearance: PRESENT: no acute distress, well-developed, well-nourished Head exam: PRESENT: atraumatic, normocephalic Eye exam: PRESENT: conjunctiva pink, EOMI, PERRLA. ABSENT: scleral icterus Ear exam: PRESENT: normal external ear exam Mouth exam: PRESENT: moist, tongue midline Neck exam: PRESENT: full ROM. ABSENT: carotid bruit, JVD, lymphadenopathy, thyromegaly Respiratory exam: PRESENT: clear to auscultation rishi Cardiovascular exam: PRESENT: RRR. ABSENT: diastolic murmur, rubs, systolic murmur Pulses: PRESENT: normal dorsalis pedis pul, +2 pedal pulses bilateral Vascular exam: PRESENT: normal capillary refill GI/Abdominal exam: PRESENT: normal bowel sounds, soft. ABSENT: distended, guarding, mass, organolmegaly, rebound, tenderness Rectal exam: PRESENT: deferred Musculoskeletal exam: PRESENT: ambulatory Neurological exam: PRESENT: alert, awake, oriented to person, oriented to place, oriented to time, oriented to situation, CN II-XII grossly intact. ABSENT: motor sensory deficit Psychiatric exam: PRESENT: appropriate affect, normal mood. ABSENT: homicidal ideation, suicidal ideation Skin exam: PRESENT: dry, intact, warm. ABSENT: cyanosis, rash Results Laboratory Results: 03/03/19 16:50 03/05/19 06:35 03/05/19 06:35 Sodium 135.6 L Potassium 4.3 Chloride 102 Carbon Dioxide 26 Anion Gap 8 BUN 14 Creatinine 0.87 Est GFR ( Amer) > 60 Glucose 96 Calcium 9.6 03/03/19 03/03/19 03/03/19 16:50 18:54 18:54 Creatine Kinase 50 CK-MB (CK-2) 0.70 Troponin I < 0.012 < 0.012 03/04/19 03/04/19 03/04/19 00:46 00:46 07:53 Creatine Kinase 45 38 CK-MB (CK-2) 0.79 Troponin I < 0.012 03/04/19 07:53 Creatine Kinase CK-MB (CK-2) 0.63 Troponin I < 0.012 Impressions: Cervical Spine X-Ray 03/03/19 00:00 IMPRESSION: NO SIGNIFICANT RADIOGRAPHIC FINDING IN THE CERVICAL SPINE. Thoracic Spine X-Ray 03/03/19 00:00 IMPRESSION: T12 compression deformity with approximately 40% loss of height. Recommend MRI for further evaluation. The patient may be a candidate for kyphoplasty. Chest X-Ray 03/03/19 17:02 IMPRESSION: Moderate Compression deformity of a lower thoracic spine vertebral body, age undetermined. No acute cardiopulmonary finding. Chest CT 03/04/19 00:00 IMPRESSION: Mild central bronchiectasis. Scarring in the lung apices. No consolidation or effusions. No suspicious pulmonary nodules. Mild compression deformities at T9 and T12. Age is indeterminate. Recommend correlation with MRI. The patient may be a candidate for kyphoplasty if clinically indicated. Thoracic Spine MRI 03/04/19 00:00 IMPRESSION: Chronic compression deformities at T9 and T12. No acute findings. Assessment & Plan - Diagnosis (1) Chest pain Qualifiers: Chest pain type: unspecified Qualified Code(s): R07.9 - Chest pain, unspecified Is this a current diagnosis for this admission?: Yes Plan: Most likely noncardiac as per cardiac work-up is negative's CT of the chest is negative for any acute findings we will put the patient on omeprazole 20 mg twice a day (2) T12 compression fracture Qualifiers: Encounter type: initial encounter Qualified Code(s): S22.080A - Wedge compression fracture of T11-T12 vertebra, initial encounter for closed fracture Is this a current diagnosis for this admission?: Yes Plan: No need for further intervention at this point continues to PRN Tylenol (3) Osteoporosis Qualifiers: Presence of current pathological fracture: unspecified Is this a current diagnosis for this admission?: Yes (4) Major depression Qualifiers: Major depression recurrence: recurrent Psychotic features: without psychotic features Is this a current diagnosis for this admission?: Yes Plan: Currently all stable (5) Memory problem Is this a current diagnosis for this admission?: Yes Plan: It is scheduled for the MRI of the head as outpatients will do it while the patient in the hospital was complaining some headache (6) Hypertension Qualifiers: Hypertension type: essential hypertension Qualified Code(s): I10 - Essential (primary) hypertension Is this a current diagnosis for this admission?: Yes Plan: Please start the losartan 50 mg and will add the myeloid often if he needed (7) Hyperlipidemia Qualifiers: Hyperlipidemia type: unspecified Qualified Code(s): E78.5 - Hyperlipidemia, unspecified Is this a current diagnosis for this admission?: Yes Plan: Continues to statin (8) Gastroesophageal reflux Qualifiers: Esophagitis presence: without esophagitis Qualified Code(s): K21.9 - Rajesh ro-esophageal reflux disease without esophagitis Is this a current diagnosis for this admission?: Yes Plan: Start the omeprazole 20 mg p.o. twice a day - Time Time Spent with patient: 15-24 minutes Medications reviewed and adjusted accordingly: Yes Anticipated discharge: Home Within: Other - Plan Summary Plan Summary: Discussed with the patient in the hospital and the patient's current conditions
[2019-03-05] MEDS: ENOXAPARIN SODIUM INJ 40 MG/0.4 ML DISP.SYRIN SUBCUT SCH (09:00)
[2019-03-05] MEDS: FAMOTIDINE 20 MG TABLET PO SCH ×2 (09:01→21:54)
[2019-03-05] MEDS: LOSARTAN POTASSIUM 50 MG TABLET PO SCH (09:12)
[2019-03-05] MEDS: PANTOPRAZOLE SODIUM 20 MG TABLET.DR PO SCH ×2 (09:12→17:11)
[2019-03-05] MEDS: CITALOPRAM HYDROBROMIDE 20 MG TABLET PO SCH (09:12)
--- NOTE | 2019-03-05 11:07 | RADIOLOGY REPORT (SQ) ---
EXAM DESCRIPTION: MRI HEAD WITHOUT COMPLETED DATE/TIME: 03/05/2019 10:00 am REASON FOR STUDY: Diagnosis Headache COMPARISON: None. TECHNIQUE: Multiplanar imaging includes non-contrasted T1, T2, FLAIR, and diffusion with ADC map seq uences. Images stored on PACS. LIMITATIONS: None. FINDINGS: ANATOMY: No anomalies. Normal vascular flow voids. Pituitary fossa normal. CSF SPACES: Atrophy induced prominence of ventricles and CSF spaces. CEREBRUM: High signal intensity lesions scattered throughout the white matter on FLAIR imaging with d istribution suggesting micro-vascular ischemic changes. No evidence of hemorrhage, mass, or extraaxi al fluid collection. POSTERIOR FOSSA: No signal alteration. No hemorrhage. No edema, masses or mass effect. Internal gadiel tory canals, cerebello-pontine angles, mastoids normal. DIFFUSION IMAGING: Negative for acute or sub-acute infarction. ORBITS: No masses. Globes normal. PARANASAL SINUSES: No fluid levels. Mucosa normal. OTHER: No other significant finding. IMPRESSION: ATROPHY AND CHRONIC MICRO-VASCULAR ISCHEMIC CHANGES. OTHERWISE NORMAL MRI OF THE BRAIN W ITHOUT INTRAVENOUS GADOLINIUM CONTRAST. EVIDENCE OF ACUTE STROKE: NO. TECHNICAL DOCUMENTATION: JOB ID: [id number] [email or web address]- All Rights Reserved Reading location - IP/workstation name: [email or web address]
[2019-03-05] MEDS ORDERED: ONDANSETRON HCL INJ/PF 4 MG/2 ML SDV IV PRN (11:31)
--- NOTE | 2019-03-05 11:43 | RADIOLOGY REPORT (SQ) ---
EXAM DESCRIPTION: BARIUM SWALLOW ESOPHAGUS COMPLETED DATE/TIME: 03/05/2019 11:27 am REASON FOR STUDY: gastritis COMPARISON: None. TECHNIQUE: Under fluoroscopic guidance, patient ingested effervescent granules followed by thick and thin barium. Fluoroscopic spot images and routine radiographic images acquired and stored on PACS. 12 MM BARIUM TABLET GIVEN: Yes. No significant delay in passage. LIMITATIONS: None. FLUOROSCOPY TIME: FLUORO TIME: 1 minutes 4 seconds of fluoroscopy was used. 8 images saved to PACS. FINDINGS: NEUROMUSCULAR COORDINATION OF SWALLOW: Normal. No aspiration. ESOPHAGEAL MOTILITY: Slow primary peristalsis with tertiary contractions. No esophageal spasm. ESOPHAGEAL MUCOSA: Normal mucosa without masses or ulceration. GASTRO-ESOPHAGEAL JUNCTION: Small sliding hiatal hernia with mild free-flowing gastroesophageal reflu x. 12 mm barium tablet passed through the GE junction without delay. NON-GI TRACT STRUCTURES: No significant finding. OTHER: No other significant finding. IMPRESSION: ESOPHAGEAL DYSMOTILITY. SMALL SLIDING HIATAL HERNIA WITH MILD REFLUX. COMMENT: Quality ID [id number]: Final reports for procedures using fluoroscopy that document radiation exp osure indices, or exposure time and number of fluorographic images (if radiation exposure indices are not available) TECHNICAL DOCUMENTATION: JOB ID: [id number] [employer]- All Rights Reserved Reading location - IP/workstation name: [email or web address] [email or web address]
--- NOTE | 2019-03-05 17:25 | Progress Note ---
Provider Note Provider Note: I had called Dr Fox about the patient he has been in contact with Dr Brie Fox wants to hold off on inpatient consult and instead wants me to schedule outpatient tests. Dr Fox to cancel the consult as discussed
[2019-03-05] MEDS ORDERED: ATORVASTATIN CALCIUM 10 MG TABLET PO SCH (22:00)
[2019-03-06 07:37] LABS: ANION GAP 7 (5-19); BLOOD UREA NITROGEN 12 mg/dL (7-20); CARBON DIOXIDE 28 mmol/L (22-30); CHLORIDE 102 mmol/L (98-107); GLUCOSE 85 mg/dL (75-110); POTASSIUM 4.4 mmol/L (3.6-5.0)
[2019-03-06 11:26] VITALS: BP 141/52
[2019-03-06] MEDS: CITALOPRAM HYDROBROMIDE 20 MG TABLET PO SCH (11:27)
[2019-03-06] MEDS: ENOXAPARIN SODIUM INJ 40 MG/0.4 ML DISP.SYRIN SUBCUT SCH (11:27)
[2019-03-06] MEDS: LOSARTAN POTASSIUM 50 MG TABLET PO SCH (11:27)
[2019-03-06] MEDS: FAMOTIDINE 20 MG TABLET PO SCH (11:28)
[2019-03-06] MEDS: PANTOPRAZOLE SODIUM 20 MG TABLET.DR PO SCH (11:28)
[2019-03-06] MEDS ORDERED: CYANOCOBALAMIN (VITAMIN B-12) INJ 1000 MCG/1 ML VIAL IM ONE (13:45)
--- NOTE | 2019-03-06 14:58 | PDOC DISCHARGE SUMMARY ---
General - Admit/Disc Date/PCP Admission Date/Primary Care Provider: 03/03/19 19:16 LAILA HIDALGO MD Discharge Date: 03/06/19 - Discharge Diagnosis (1) Chest pain Is this a current diagnosis for this admission?: Yes Summary: Most likely noncardiac with initial EKG cardiac enzymes is all negative seen by Dr. Mayes suggest follow outpatients cardiology per stress test Most likely ongoing arthritis in the T12 compression fractures with some acid refluxRelated pain (2) T12 compression fracture Is this a current diagnosis for this admission?: Yes Summary: Seen by the pain management suggest no need for any further interventions (3) Osteoporosis Is this a current diagnosis for this admission?: Yes Summary: Will consider the patient is to give her IV therapy instead of p.o. making the patient's stomach upsets (4) Major depression Is this a current diagnosis for this admission?: Yes Summary: Currently follow with a psychiatrist (5) Memory problem Is this a current diagnosis for this admission?: Yes Summary: Patient MRI all recent blood work is stable continues to B12 (6) Hypertension Is this a current diagnosis for this admission?: Yes Summary: Continues on losartan 50 mg p.o. daily for blood pressure still elevated consi bryanna amlodipine 2.5 mg twice a day (7) Hyperlipidemia Is this a current diagnosis for this admission?: Yes Summary: Continues to statin (8) Gastroesophageal reflux Is this a current diagnosis for this admission?: Yes Summary: Continues to aspirin - Additional Information Discharge Diet: Cardiac Discharge Activity: Activity As Tolerated Prescriptions: Pantoprazole Sodium [Protonix [address] Tablet] 20 mg PO BID #60 tablet.dr Home Medications: Alendronate Sodium 70 mg PO Q7D 03/03/19 Atorvastatin Calcium [Lipitor 10 mg Tablet] 10 mg PO QHS 03/03/19 Citalopram Hydrobromide [Celexa 20 mg Tablet] 30 mg PO DAILY 03/03/19 Levocetirizine Dihydrochloride [Allergy Relief] 5 mg PO DAILY 03/03/19 Losartan Potassium [Cozaar 50 mg Tablet] 50 mg PO DAILY 03/03/19 Pantoprazole Sodium [Protonix [address] Tablet] 20 mg PO BID #60 tablet.dr 03/06/19 History of Present Illness History of Present Illness: ISABELA HDEZ is a 79 year old female This is a 79-year-old female fairly new patient to the practice with a history of the major depression's and a history of osteoporosis and recently struggling from the memory problem came to the emergency department with the complaining of her chest pain especially describing her midsternal in the left side started 4 hours back before come to the ER without any activity In the ER patient initial EKG cardiac enzyme is all negative patient's d-dimer is also negative Patient's never had any previous heart disease At this point patient was giving the nitro which mild help but still have a chest pain which more likely a chest wall type of the pain and initial work-up when I saw the patient noticed that patient has some kind of a compression fracture and decided to order the x-ray of the C-spine and T-spine to further evaluate may be they can radiate this pain With the age and other medical issues decided to cardiology consult for further evaluate Discussed with the hospital on the bedside regarding the patient's current conditions Discussed with the cardiology Dr. Mayes Hospital Course Hospital Course: This is a 79-year-old female is basically present in the emergency department with the chest pressure on the left side especially sternal area patient's initial EKG cardiac enzymes chest x-ray is all stable Patient's chest x-ray suggest some T12 compression deformity underwent for the x-ray which confirmed this 12 compression fracture and underwent for the MRI Patient have osteoporosis patient is currently taking the medicines Patient MRI of the head was negative for any acute finding Esophageal x-ray suggests a mild hiatal hernia with acid reflux Seen by cardiology all clear Very extensive discussion with the patient and about all test results and a close follow-up Is walking the hallway without any problems denied any chest pain no short of breath p.o. intake is good Physical Exam Vital Signs: Temp Pulse Resp BP Pulse Ox 98.0 F 65 16 141/52 H 97 03/06/19 11:05 03/06/19 11:05 03/06/19 11:05 03/06/19 11:05 03/06/19 11:05 Intake & Output 03/05/19 03/06/19 03/07/19 06:59 06:59 06:59 Intake Total 820 450 240 Balance 820 450 240 Weight 58.9 kg 59 kg General appearance: PRESENT: no acute distress, well-developed, well-nourished Head exam: PRESENT: atraumatic, normocephalic Eye exam: PRESENT: conjunctiva pink, EOMI, PERRLA. ABSENT: scleral icterus Ear exam: PRESENT: normal external ear exam Mouth exam: PRESENT: moist, tongue midline Neck exam: PRESENT: full ROM. ABSENT: carotid bruit, JVD, lymphadenopathy, thyromegaly Respiratory exam: PRESENT: clear to auscultation rishi Cardiovascular exam: PRESENT: RRR. ABSENT: diastolic murmur, rubs, systolic murmur Pulses: PRESENT: normal dorsalis pedis pul, +2 pedal pulses bilateral Vascular exam: PRESENT: normal capillary refill GI/Abdominal exam: PRESENT: normal bowel sounds, soft. ABSENT: distended, guarding, mass, organolmegaly, rebound, tenderness Rectal exam: PRESENT: deferred Extremities exam: ABSENT: pedal edema Musculoskeletal exam: PRESENT: ambulatory Neurological exam: PRESENT: alert, awake, oriented to person, oriented to place, oriented to time, oriented to situation, CN II-XII grossly intact. ABSENT: motor sensory deficit Psychiatric exam: PRESENT: appropriate affect, normal mood. ABSENT: homicidal ideation, suicidal ideation Skin exam: PRESENT: dry, intact, warm. ABSENT: cyanosis, rash Results Laboratory Results: 03/03/19 16:50 03/06/19 06:05 03/06/19 06:05 Sodium 136.7 L Potassium 4.4 Chloride 102 Carbon Dioxide 28 Anion Gap 7 BUN 12 Creatinine 0.83 Est GFR ( Amer) > 60 Glucose 85 Calcium 9.0 03/03/19 03/03/19 03/03/19 16:50 18:54 18:54 Creatine Kinase 50 CK-MB (CK-2) 0.70 Troponin I < 0.012 < 0.012 03/04/19 03/04/19 03/04/19 00:46 00:46 07:53 Creatine Kinase 45 38 CK-MB (CK-2) 0.79 Troponin I < 0.012 03/04/19 07:53 Creatine Kinase CK-MB (CK-2) 0.63 Troponin I < 0.012 Impressions: Cervical Spine X-Ray 03/03/19 00:00 IMPRESSION: NO SIGNIFICANT RADIOGRAPHIC FINDING IN THE CERVICAL SPINE. Thoracic Spine X-Ray 03/03/19 00:00 IMPRESSION: T12 compression deformity with approximately 40% loss of height. Recommend MRI for further evaluation. The patient may be a candidate for kyphoplasty. Chest X-Ray 03/03/19 17:02 IMPRESSION: Moderate Compression deformity of a lower thoracic spine vertebral body, age undetermined. No acute cardiopulmonary finding. Chest CT 03/04/19 00:00 IMPRESSION: Mild central bronchiectasis. Scarring in the lung apices. No co nsolidation or effusions. No suspicious pulmonary nodules. Mild compression deformities at T9 and T12. Age is indeterminate. Recommend correlation with MRI. The patient may be a candidate for kyphoplasty if clinically indicated. Thoracic Spine MRI 03/04/19 00:00 IMPRESSION: Chronic compression deformities at T9 and T12. No acute findings. Esophagus X-Ray 03/05/19 00:00 IMPRESSION: ESOPHAGEAL DYSMOTILITY. SMALL SLIDING HIATAL HERNIA WITH MILD REFLUX. Head MRI 03/05/19 00:00 IMPRESSION: ATROPHY AND CHRONIC MICRO-VASCULAR ISCHEMIC CHANGES. OTHERWISE NORMAL MRI OF THE BRAIN WITHOUT INTRAVENOUS GADOLINIUM CONTRAST. EVIDENCE OF ACUTE STROKE: NO. Qualifiers - * PATIENT BEING DISCHARGED WITH ANY OF THE FOLLOWING DIAGNOSIS: No Acute Heart Failure - Is this a Heart Failure Patient?: No Plan Time Spent: Greater than 30 Minutes
== END 2019-03-06 13:54 | disposition home health service (06) ==
LOC: ER 16:05 → EH 19:16 → INTOOBSV 19:16 → OBSVTOIN 19:16 → 3W 21:50
PROVIDERS: ADMIT Family Medicine; ATTEND Family Medicine
DX: R07.89 Other chest pain (principal); M81.0 Age-related osteoporosis without current pathological fracture; S22.080A Wedge compression fracture of T11-T12 vertebra, initial encounter for closed fracture; S22.070A Wedge compression fracture of T9-T10 vertebra, initial encounter for closed fracture; X58.XXXA Exposure to other specified factors, initial encounter; R41.3 Other amnesia; I10 Essential (primary) hypertension; E78.5 Hyperlipidemia, unspecified; K21.9 Gastro-esophageal reflux disease without esophagitis; K44.9 Diaphragmatic hernia without obstruction or gangrene; I44.7 Left bundle-branch block, unspecified; F33.9 Major depressive disorder, recurrent, unspecified; R51 Headache; M19.90 Unspecified osteoarthritis, unspecified site; K22.4 Dyskinesia of esophagus; Z79.82 Long term (current) use of aspirin; Z79.899 Other long term (current) drug therapy; Z86.73 Personal history of transient ischemic attack (TIA), and cerebral infarction without residual deficits
CPT/HCPCS: 93005 ×2; 99285; 96360; 36415 ×4; 82553 ×2; 82550 ×2; 85025; 80048 ×3; 80053; 84484 ×2; 85379; 70551; 72146; 72040; 71046; 74220; 72070; 71250; 93010 ×2; 97116; 97163; G0378 ×3; A9270 ×14; J3420; J1650 ×3; J3490 ×3; J2405; J7030

== ENCOUNTER 2019-03-19 08:46 | Day surgery (SDC) | payer MEDICARE, OTHER ==
[2019-03-19] MEDS ORDERED: PROPOFOL INJ 200 MG/20 ML VIAL IV ONE (11:31)
--- NOTE | 2019-03-19 12:09 | Operative Report ---
Operative Report DATE OF SURGERY: 03/19/19 Operative Report: The risks benefits and alternatives of the procedure explained to the patient in detail and informed consent is obtained.A GIF Olympus video scope was inserted into the patient's mouth and hypopharynx, the esophagus is identified intubated and insufflated, the scope was then advanced through the esophagus stomach and duodenum, retroflexion maneuver is done ,the esophagus stomach and first and second portions of the duodenum examined. PREOPERATIVE DIAGNOSIS: Noncardiac chest pain POSTOPERATIVE DIAGNOSIS: Severe gastritis. Clean-based gastric ulcers. Hiatal hernia. Biopsy obtained to rule out Helicobacter pylori OPERATION: EGD with biopsy SURGEON: CASANDRA GONSALES ANESTHESIA: LMAC TISSUE REMOVED OR ALTERED: As noted above. COMPLICATIONS: None. ESTIMATED BLOOD LOSS: None. INTRAOPERATIVE FINDINGS: As noted above. PROCEDURE: Patient tolerated the procedure well. No immediate postprocedure complications are noted. Patient is discharged in good condition. Discharge date 03/19/2019. Discharge diet: Regular. Discharge activity: Regular. 2 to 3-week follow-up to discuss findings. Patient is instructed to call the office or proceed to the emergency room should there be any further problems or questions. Wait on the pathology.
[2019-03-19 13:18] VITALS: BP 146/50
== END 2019-03-19 13:05 | disposition home or self-care (01) ==
LOC: OROUT 08:46
PROVIDERS: ATTEND Internal Medicine Gastroenterology
DX: K29.50 Unspecified chronic gastritis without bleeding (principal); K25.9 Gastric ulcer, unspecified as acute or chronic, without hemorrhage or perforation; K44.9 Diaphragmatic hernia without obstruction or gangrene; K21.9 Gastro-esophageal reflux disease without esophagitis; I10 Essential (primary) hypertension
CPT/HCPCS: 43239; 88305 ×2; 00731; J2704; 731

== ENCOUNTER → 2019-04-08 | Outpatient (CLI) | payer MEDICARE, OTHER ==
--- NOTE | 2019-04-08 13:44 | WOMENS IMAGING REPORT ---
EXAM DESCRIPTION: BONE DENSITY HIP/SPINE COMPLETED DATE/TIME: 04/08/2019 1:33 pm REASON FOR STUDY: M81.0 AGE-RELATED OSTEOPOROSIS WITHOUT CURRENT PATHOLOGICAL FRACTURE M81.0 AGE-RE LATED OSTEOPOROSIS W/O CURRENT PATHOLOGICAL FRAC COMPARISON: None. TECHNIQUE: Dual-Energy X-ray Absorptiometry (DEXA) of the AP Spine and Hip. LIMITATIONS: None. FINDINGS: LUMBAR SPINE: The bone mineral density (BMD) measured from L1-L4 in the AP projection correlates with a T-score of -1.8, which is osteopenia as defined by the World Health Organization. BMD Change vs Baseline: N/A HIP: The bone mineral density (BMD) measured in the left hip correlates with a T-score of -2.7 in the neck , which is osteoporosis as defined by the World Health Organization. BMD Change vs Baseline: N/A 10 year Fracture Risk Assessment: Major Osteoporotic Fracture: Not available. Hip Fracture: Not available. IMPRESSION: 1. LUMBAR SPINE WHO CLASSIFICATION: OSTEOPENIA. 2. HIP WHO CLASSIFICATION: OSTEOPOROSIS. OVERALL ASSESSMENT: WHO CLASSIFICATION: OSTEOPOROSIS. COMMENT: The World Health Organization defines low BMD as follows: T-score: Normal: Greater than -1.0 Osteopenia: Between -1.0 and -2.5 Osteoporosis: Less than -2.5 without fractures Established osteoporosis: Less than -2.5 with fractures In general, you may wish to consider: Diagnosis Treatment Follow-up DEXA Normal BMD Prevention 2-3 years Osteopenia Prevention/Therapy 1-2 years Osteoporosis Therapy Yearly TECHNICAL DOCUMENTATION: JOB ID: [id number] [employer]- All Rights Reserved Reading location - IP/workstation name: [email or web address]
== END ==
LOC: WI 13:08
PROVIDERS: ATTEND Family Medicine
DX: M81.0 Age-related osteoporosis without current pathological fracture (principal)
CPT/HCPCS: 77080

== ENCOUNTER → 2019-06-23 | Outpatient (CLI) | payer MEDICARE, OTHER ==
--- NOTE | 2019-06-23 15:51 | RADIOLOGY REPORT (SQ) ---
EXAM DESCRIPTION: L SPINE WHOLE COMPLETED DATE/TIME: 06/23/2019 3:25 pm REASON FOR STUDY: (M54.5)LOW BACK PAIN M54.5 LOW BACK PAIN COMPARISON: None. NUMBER OF VIEWS: Five views including obliques. TECHNIQUE: AP, lateral, oblique, and sacral radiographic images acquired of the lumbar spine. LIMITATIONS: None. FINDINGS: MINERALIZATION: Normal. SEGMENTATION: Normal. No transitional anatomy. ALIGNMENT: Mild scoliosis. VERTEBRAE: Superior endplate compression changes of uncertain age at L4. Approximately 1/3 loss of h eight of the T12 vertebra. DISCS: Disc spaces narrowed from L1-2 L4. POSTERIOR ELEMENTS: Hypertrophic facet changes at L5-S1. HARDWARE: None in the spine. PARASPINAL SOFT TISSUES: Normal. PELVIS: Intact as visualized. No fractures or worrisome bone lesions. SI joints intact. OTHER: No other significant finding. IMPRESSION: Mild scoliosis and degenerative disc disease. Compression changes are present at T12 an d L4 appear chronic. TECHNICAL DOCUMENTATION: JOB ID: [id number] [employer]- All Rights Reserved Reading location - IP/workstation name: [email or web address]
== END ==
LOC: RAD 14:40
PROVIDERS: ATTEND Family Medicine
DX: M54.5 Low back pain (principal); M51.36 Other intervertebral disc degeneration, lumbar region; M41.86 Other forms of scoliosis, lumbar region
CPT/HCPCS: 72110

== ENCOUNTER → 2019-12-15 | Outpatient (CLI) | payer MEDICARE, OTHER ==
--- NOTE | 2019-12-15 15:17 | RADIOLOGY REPORT (SQ) ---
EXAM DESCRIPTION: CHEST PA/LATERAL IMAGES COMPLETED DATE/TIME: 12/15/2019 3:05 pm REASON FOR STUDY: CHEST PAIN COMPARISON: 03/03/2019 EXAM PARAMETERS: NUMBER OF VIEWS: two views TECHNIQUE: Digital Frontal and Lateral radiographic views of the chest acquired. RADIATION DOSE: NA LIMITATIONS: none FINDINGS: LUNGS AND PLEURA: No opacities, masses or pneumothorax. No pleural effusion. MEDIASTINUM AND HILAR STRUCTURES: No masses or contour abnormalities. HEART AND VASCULAR STRUCTURES: Heart normal size. No evidence for failure. BONES: Unchanged. HARDWARE: None in the chest. OTHER: No other significant finding. IMPRESSION: NO SIGNIFICANT RADIOGRAPHIC FINDING IN THE CHEST. TECHNICAL DOCUMENTATION: JOB ID: [id number] 2010 [employer]- All Rights Reserved Reading location - IP/workstation name: [email or web address]
[2019-12-15 16:09] LABS: ABSOLUTE BASOPHILS # (AUTO) 0.1 10^3/uL (0.0-0.2); ABSOLUTE EOSINOPHILS # (AUTO) 0.3 10^3/uL (0.0-0.6); ABSOLUTE LYMPHOCYTES (AUTO) 1.4 10^3/uL (0.5-4.7); ABSOLUTE MONOCYTES (AUTO) 0.3 10^3/uL (0.1-1.4); ABSOLUTE NEUT (AUTO) 6.3 10^3/uL (1.7-8.2); BASOPHILS % (AUTO) 0.9 % (0-2); EOSINOPHILS % (AUTO) 3.7 % (0-6); HEMOGLOBIN 12.9 g/dL (12.0-15.5); LYMPHOCYTES % (AUTO) 16.1 % (13-45); MEAN CORPUSCULAR HEMOGLOBIN 30.7 pg (27.0-33.4); MEAN CORPUSCULAR VOLUME 90 fl (80-97); MONOCYTES % (AUTO) 4.1 % (3-13); PLATELET COUNT 230 10^3/uL (150-450); RED BLOOD COUNT 4.21 10^6/uL (3.72-5.28); RED CELL DISTRIBUTION WIDTH 12.5 % (11.5-14.0); SEGMENTED NEUTROPHILS % (AUTO) 75.2 % (42-78); TOTAL CELLS COUNTED % (AUTO) 100 %; WHITE BLOOD COUNT 8.4 10^3/uL (4.0-10.5)
[2019-12-15 16:20] LABS: ANION GAP 5 (5-19); BLOOD UREA NITROGEN 14 mg/dL (7-20); CALCIUM 10.2 mg/dL (8.4-10.2); CARBON DIOXIDE 31 mmol/L (22-30); CHLORIDE 101 mmol/L (98-107); GLUCOSE 121 mg/dL (75-110)
== END ==
LOC: OD 14:51
PROVIDERS: ATTEND Family Medicine
DX: R07.9 Chest pain, unspecified (principal)
CPT/HCPCS: 36415; 71046; 80048; 84484; 85025

== ENCOUNTER → 2020-06-03 | Outpatient (CLI) | payer MEDICARE, OTHER ==
--- NOTE | 2020-06-03 13:44 | RADIOLOGY REPORT (SQ) ---
EXAM DESCRIPTION: CT HEAD WITHOUT IMAGES COMPLETED DATE/TIME: 06/03/2020 12:54 pm REASON FOR STUDY: (H53.40)UNSPECIFIED VISUAL FIELD DEFECTS H53.40 UNSPECIFIED VISUAL FIELD DEFECTS COMPARISON: MR 03/05/2019 TECHNIQUE: Axial images acquired through the brain without intravenous contrast. Images reviewed wi th bone, brain and subdural windows. Additional sagittal and coronal reconstructions were generated. Images stored on PACS. All CT scanners at this facility use dose modulation, iterative reconstruction, and/or weight based d osing when appropriate to reduce radiation dose to as low as reasonably achievable (ALARA). [facility]: Dose Right [facility]: CareDose [facility]: Dose Right [facility]: Teradose 4D [facility]: Enpocket RADIATION DOSE: CT Rad equipment meets quality standard of care and radiation dose reduction techniq ues were employed. CTDIvol: 49.0 mGy. DLP: 960 mGy-cm. mGy. LIMITATIONS: None. FINDINGS: VENTRICLES: Prominent ventricles secondary to involutional atrophy. CEREBRUM: Cortical atrophy. No masses. No hemorrhage. No midline shift. No evidence for acute inf arction. Areas of low density in the white matter most likely chronic small vessel ischemic changes. CEREBELLUM: No masses. No hemorrhage. No alteration of density. No evidence for acute infarction. EXTRAAXIAL SPACES: No fluid collections. No masses. ORBITS AND GLOBE: No intra- or extraconal masses. Normal contour of globe without masses. CALVARIUM: No fracture. PARANASAL SINUSES: No fluid or mucosal thickening. SOFT TISSUES: No mass or hematoma. OTHER: No other significant finding. IMPRESSION: MICROVASCULAR ISCHEMIA AND GENERALIZED ATROPHY. NO ACUTE IMAGING FINDINGS IN THE BRAIN EVIDENCE OF ACUTE STROKE: NO. COMMENT: Quality ID # [id number]: Final reports with documentation of one or more dose reduction techniques (e.g., Automated exposure control, adjustment of the mA and/or kV according to patient size, use of iterative reconstruction technique) TECHNICAL DOCUMENTATION: JOB ID: [id number] 2010 [employer]- All Rights Reserved Reading location - IP/workstation name: [email or web address]
== END ==
LOC: RAD 12:39
PROVIDERS: ATTEND Physician Assistant
DX: H53.40 Unspecified visual field defects (principal)
CPT/HCPCS: 70450